=== PATIENT | female | born 1990 | race Caucasian/White ===

== ENCOUNTER → 2017-07-31 | Outpatient (CLI) | payer SELFPAY ==
[~2017-07-31] MED LIST: 6MP PO; ADAL40KI INJ; ALBU1AER9 INH; BCPILLS PO; EXEDRIN PO; FERR325T51 PO
[2017-07-31 13:26] LABS: BASO % 0.2 %; BASO ABS # 0.02 K/uL (0-0.2); COMPLETE YES; EOS % 1.6 %; HEMATOCRIT 39.8 % (37-47); IG% 0.2 %; LYMPH % 29.6 %; LYMPH ABS # 2.78 K/uL (1.2-3.4); MEAN CELL VOLUME 83.1 fL (80-100); MEAN CORPUSCULAR HEMOGLOBIN 27.8 pg (25-34); MEAN CORPUSCULAR HGB CONC 33.4 g/dl (32-36); MEAN PLATELET VOLUME 11.2 fL (7.4-10.4); MONO % 7.2 %; NEUT % 61.2 %; PLATELET COUNT 315 K/uL (130-400); RED BLOOD COUNT 4.79 M/uL (4.2-5.4)
[2017-07-31 14:00] LABS: ALT/SGPT 19 U/L (12-78); AST/SGOT 12 U/L (15-37); BLOOD UREA NITROGEN 7 mg/dl (7-18); BUN/CREATININE RATIO 9.7 (10-20); CALCIUM 8.8 mg/dl (8.5-10.1); CARBON DIOXIDE 21 mmol/L (21-32); CHLORIDE 116 mmol/L (98-107); GLUCOSE 69 mg/dl (70-99); POTASSIUM 3.4 mmol/L (3.5-5.1); SODIUM 143 mmol/L (136-145)
[2017-07-31 14:03] LABS: ALKALINE PHOSPHATASE 72 U/L (45-117); C-REACTIVE PROTEIN 0.96 mg/dl (0-0.29)
== END | disposition home or self-care (01) ==
LOC: C.LAB1850 12:31
PROVIDERS: ATTEND Internal Medicine
DX: K50.90 Crohn's disease, unspecified, without complications (principal)

== ENCOUNTER 2019-12-22 13:23 | Inpatient (IN) ==
[2019-12-22] MEDS ORDERED: ONDANSETRON INJ 2 MG/ML 2 ML VIAL IV STA ×2 (13:42→14:19)
[2019-12-22] MEDS ORDERED: MoRPHine SULFATE 4 MG/ML 1 ML CARP\\VIAL IV STA (13:42)
--- NOTE | 2019-12-22 13:45 | Emergency Department Note ---
History of Present Illness General Chief complaint: Vomiting Stated complaint: throwing up,crohns flares ups Time Seen by Provider: 12/22/19 13:35 History of Present Illness Maximum Pain Intensity: 10 This is a 29-year-old female that presents to the emergency department via private vehicle with complaints of "throwing up, Crohn's flare". The patient notes that she has a history of Crohn's disease and has had this for about 7 years. She states that she was feeling well and this morning on her way to receive her Entyvio injection she notes that she began with abdominal pain and vomiting. She points to the epigastric region as a location of pain. She notes that she has had similar flares in the past. She rates the pain is a 10/10. She notes persistent vomiting of bilious material. She spoke to her GI specialist who referred her here for further evaluation and management. Home Medications Home Medications Medication Instructions Recorded Confirmed Type acetaminophen 500 mg tablet 1,000 mg PO Q8H tab 09/14/19 12/22/19 History albuterol sulfate 2 puff INHALATION Q6H PRN 09/16/19 12/22/19 History vedolizumab 300 mg intravenous See Rx Instructions IV .COMPLEX 11/25/19 12/22/19 History solution famotidine 20 mg tablet 20 mg PO BID PRN 12/22/19 12/22/19 History Allergies Allergy/AdvReac Type Severity Reaction Status Date / Time promethazine Allergy Intermediate SHORTNESS Verified 12/22/19 13:53 OF BREATH bee venom protein (honey bee) Allergy Mild Rash Verified 12/22/19 13:53 Past Med/Surg History Medical History Crohns disease Dyspnea on exertion inhaler prn Fistula Surgical History History of section x2 History of cholecystectomy History of major abdominal surgery 2008---infection after , wound dehisced---had to have sx to clean site/had wound vac History of wisdom tooth extraction Family History Grandfather (Paternal) Family history of diabetes mellitus Grandmother (Paternal) Family history of diabetes mellitus Aunt Family history of esophageal cancer Other Crohn's disease No family history of adverse response to anesthesia Social History Preferred Language: Kyrgyz Communication Ability: Effective 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 Beliefs That Will Affect Care: None marital status: Current Living Situation: Spouse and Family Current Living Situation Comment: Lives with and kids current occupational status: employed 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 Feels Safe at Home: Yes Safety Concerns: Feels Safe At This Time Smoking Status: Current every day smoker Tobacco Type: cigarettes ; Cigarettes Per Day: 1/2 ppd ; Second Hand Exposure: Yes ( smokes/parents smoked) ; Hx Alcohol Use: Yes Alcohol type: hard liquor Hx Substance Use: No Childhood Exposure to Second-Hand Smoke: Yes caffeine: Yes Seatbelt Use: never Review of Systems A total of 10 systems reviewed and were otherwise negative Physical Exam Vital Signs Vital Signs - 24 hr 12/22/19 13:27 12/22/19 15:29 Temperature 36.4 C L Temperature Source Oral Pulse Rate 99 H Pulse Rate [Apical] 82 Respiratory Rate 20 18 Blood Pressure 123/89 Blood Pressure Mean 100 Pulse Oximetry 100 98 Oxygen Delivery Method Room Air Sepsis Recent Fever Within 48 Hours No Sepsis New/Unexplained Change in Mental Status No Sepsis Action Taken by Nursing No Action Required VITAL SIGNS - Vital signs and nursing notes were reviewed. Stable and afebrile. GENERAL -29-year-old female appearing her stated age who is in no acute distress but appears to be in pain and is holding the epigastric region. She is actively vomiting at the bedside into an emesis bag. This is a bilious color and there is no bright red blood. Communicates well with provider and answers questions appropriately. SKIN - Without rashes. No meningeal or petechial rash. HEAD - NC/AT. EYES - PERRL with EOMI bilaterally. Sclera anicteric. EARS - No deformities of external structures noted on gross examination bilater ally. NOSE - Midline and without cyanosis. No epistaxis or purulent drainage noted. MOUTH/OROPHARYNX - Without perioral cyanosis. NECK - Neck with FROM. Supple to palpation. No lymphadenopathy noted. No nuchal rigidity. LUNGS - Chest wall symmetric without accessory muscle use, intercostals retra ctions, or central cyanosis. Normal vesicular breath sounds CTA B/L. No wheezes, rales, or rhonchi appreciated. CARDIAC - RRR with S1/S2. No murmur, rubs, or gallops appreciated. ABDOMEN - Abdominal contour normal without pulsations or visible masses. BS normoactive all four quadrants. Epigastric region TTP. Abdomen is soft and nonrigid. No palpable masses, hepatosplenomegaly, or ascites noted. EXTREMITIES - No clubbing or peripheral cyanosis. No pretibial edema present. +5/5 strength noted in UE/LE bilaterally. NEUROLOGIC - Cranial nerves II through XII grossly intact. Sensory intact to li ght touch throughout. PSYCH - A&O, and cooperates fully with examiner. Pt is very pleasant and inte racts well with examiner. Course Administered Medications Nystatin 30 ml/ Dexamethasone 3.75 mg/ Diphenhydramine HCl 300 mg/ Sucrose 45 ml/Microcrystalline Cellulose 45 ml/ BARCODE IDENTIFIER 1 ea 0 ml PO Q2H PRN PRN Reason: Sore Throat Stop: 01/21/20 20:16 Last Admin: 12/22/19 20:49 Dose: 5 ml Documented by: [id number] Enoxaparin Sodium (Lovenox) 40 mg SQ Q24H THAIS Stop: 01/21/20 18:59 Last Admin: 12/22/19 20:48 Dose: Not Given Documented by: [id number] Sodium Chloride (Nss 1000ml) 1,000 mls @ 100 mls/hr IV .Q10H THAIS Stop: 01/21/20 17:59 Last Infusion: 12/23/19 06:10 Dose: 100 mls/hr Documented by: [id number] Admin: 12/23/19 04:04 Dose: 100 mls/hr Documented by: [id number] Infusion: 12/23/19 04:04 Dose: 100 mls/hr Documented by: [id number] Admin: 12/22/19 18:12 Dose: 100 mls/hr Documented by: [id number] Methylprednisolone 80 mg/ (Syringe) 1.28 mls @ 1.5 mls/min IV Q12@0600,1800 THAIS Stop: 01/21/20 17:59 Last Admin: 12/23/19 05:52 Dose: 1.5 mls/min Documented by: [id number] Admin: 12/22/19 18:30 Dose: 1.5 mls/min Documented by: [id number] Famotidine 20 mg/ Syringe 5 mls @ 2.5 mls/min IV Q12@0600,1800 THAIS Stop: 01/21/20 17:59 Last Admin: 12/23/19 05:52 Dose: 2.5 mls/min Documented by: [id number] Admin: 12/22/19 18:30 Dose: 2.5 mls/min Documented by: [id number] Lorazepam (Ativan) 0.5 mg in 1 mls @ 1 mls/min IV Q4H PRN PRN Reason: Anxiety Stop: 01/21/20 20:16 Last Admin: 12/22/19 20:48 Dose: 1 mls/min Documented by: [id number] Discontinued Medications Diphenhydramine HCl (Benadryl) 25 mg IV NOW STA Stop: 12/22/19 15:42 Last Admin: 12/22/19 15:48 Dose: 25 mg Documented by: [id number] Hydromorphone HCl (Dilaudid) 0.5 mg IV NOW STA Stop: 12/22/19 14:20 Last Admin: 12/22/19 14:45 Dose: 0.5 mg Documented by: [id number] Hydromorphone HCl (Dilaudid) 0.5 mg IV NOW STA Stop: 12/22/19 17:00 Last Admin: 12/22/19 17:02 Dose: 0.5 mg Documented by: [id number] Hydromorphone HCl (Dilaudid) 0.5 mg IV NOW STA Stop: 12/22/19 19:00 Last Admin: 12/22/19 19:04 Dose: 0.5 mg Documented by: [id number] Sodium Chloride (Nss 1000ml) 1,000 mls @ 999 mls/hr IV .Q1H1M THAIS Stop: 12/22/19 15:00 Last Infusion: 12/22/19 15:31 Dose: 0 mls/hr Documented by: [id number] Admin: 12/22/19 14:04 Dose: 999 mls/hr Documented by: [id number] Sodium Chloride (Nss 1000ml) 1,000 mls @ 999 mls/hr IV .Q1H1M THAIS Stop: 12/22/19 16:15 Last Infusion: 12/22/19 16:59 Dose: 0 mls/hr Documented by: [id number] Admin: 12/22/19 15:30 Dose: 999 mls/hr Documented by: [id number] Metoclopramide HCl (Reglan) 5 mg IV NOW STA Stop: 12/22/19 15:42 Last Admin: 12/22/19 15:48 Dose: 5 mg Documented by: [id number] Morphine Sulfate (Morphine Sulfate) 4 mg IV NOW STA Stop: 12/22/19 13:43 Last Admin: 12/22/19 14:03 Dose: 4 mg Documented by: [id number] Ondansetron HCl (Zofran) 4 mg IV NOW STA Stop: 12/22/19 13:43 Last Admin: 12/22/19 14:03 Dose: 4 mg Documented by: [id number] Ondansetron HCl (Zofran) 4 mg IV NOW STA Stop: 12/22/19 14:20 Last Admin: 12/22/19 14:42 Dose: 4 mg Documented by: [id number] Medical Decision Making Laboratory Data Result diagrams: 12/23/19 04:38 12/23/19 04:38 Lab Results 12/22/19 12/22/19 12/22/19 Range/Units 13:49 13:49 13:49 WBC 13.28 H (4.8-10.8) K/uL RBC 4.97 (4.2-5.4) M/uL Hgb 14.2 (12.0-16.0) g/dL Hct 42.9 (37-47) % MCV 86.3 (80-100) fL MCH 28.6 (25-34) pg MCHC 33.1 (32-36) g/dL RDW Std Deviation 40.7 (36.4-46.3) fL RDW Coeff of Lyla 12.8 (11.5-14.5) % Plt Count 323 (130-400) K/uL MPV 9.9 (7.4-10.4) fL Immature Gran % (Auto) 0.2 % Neut % (Auto) 74.1 % Lymph % (Auto) 18.1 % Glascock % (Auto) 6.4 % Eos % (Auto) 1.0 % Baso % (Auto) 0.2 % Immature Gran # (Auto) 0.02 (0.00-0.02) K/uL Neut # (Auto) 9.85 H (1.4-6.5) K/uL Lymph # (Auto) 2.40 (1.2-3.4) K/uL Glascock # (Auto) 0.85 H (0.11-0.59) K/uL Eos # (Auto) 0.13 (0-0.5) K/uL Baso # (Auto) 0.03 (0-0.2) K/uL Sodium 139 (136-145) mmol/L Potassium 3.6 (3.5-5.1) mmol/L Chloride 106 (98-107) mmol/L Carbon Dioxide 27 (21-32) mmol/L Anion Gap 6.0 (3-11) BUN 8 (7-18) mg/dl Creatinine 0.73 (0.6-1.2) mg/dl Est Cr Clr Drug Dosing 104.9 ml/min Est GFR ( Amer) 127.2 Est GFR (Non-Af Amer) 109.7 BUN/Creatinine Ratio 11.3 (10-20) Glucose 115 H (70-99) mg/dl Calcium 10.2 H (8.5-10.1) mg/dl Magnesium 2.0 (1.8-2.4) mg/dl Total Bilirubin 0.5 (0.2-1) mg/dl AST 15 (15-37) U/L ALT 21 (12-78) U/L Alkaline Phosphatase 67 (45-117) U/L C-Reactive Protein 2.08 H (0-0.29) mg/dl Total Protein 8.7 H (6.4-8.2) gm/dl Albumin 4.2 (3.4-5.0) gm/dl Globulin 4.5 H (2.5-4.0) gm/dl Albumin/Globulin Ratio 0.9 (0.9-2) Lipase 102 (73-393) U/L Urine Color Urine Appearance (Clear) Urine pH (4.5-7.5) Ur Specific [place] (1.000-1.030) Urine Protein (Negative) Urine Glucose (UA) (Negative) Urine Ketones (Negative) Urine Blood (Negative) Urine Nitrite (Negative) Urine Bilirubin (Negative) Urine Urobilinogen (Negative) Ur Leukocyte Esterase (Negative) Urine WBC (Auto) (0-5) /hpf Urine RBC (Auto) (0-4) /hpf U Hyaline Cast (Auto) (0-5) /lpf U Epithel Cells (Auto) (0-5) /lpf Urine Bacteria (Auto) (Negative) POC Ur Test (NEG) 12/22/19 12/22/19 Range/Units 16:00 16:00 WBC (4.8-10.8) K/uL RBC (4.2-5.4) M/uL Hgb (12.0-16.0) g/dL Hct (37-47) % MCV (80-100) fL MCH (25-34) pg MCHC (32-36) g/dL RDW Std Deviation (36.4-46.3) fL RDW Coeff of Lyla (11.5-14.5) % Plt Count (130-400) K/uL MPV (7.4-10.4) fL Immature Gran % (Auto) % Neut % (Auto) % Lymph % (Auto) % Glascock % (Auto) % Eos % (Auto) % Baso % (Auto) % Immature Gran # (Auto) (0.00-0.02) K/uL Neut # (Auto) (1.4-6.5) K/uL Lymph # (Auto) (1.2-3.4) K/uL Glascock # (Auto) (0.11-0.59) K/uL Eos # (Auto) (0-0.5) K/uL Baso # (Auto) (0-0.2) K/uL Sodium (136-145) mmol/L Potassium (3.5-5.1) mmol/L Chloride (98-107) mmol/L Carbon Dioxide (21-32) mmol/L Anion Gap (3-11) BUN (7-18) mg/dl Creatinine (0.6-1.2) mg/dl Est Cr Clr Drug Dosing ml/min Est GFR ( Amer) Est GFR (Non-Af Amer) BUN/Creatinine Ratio (10-20) Glucose (70-99) mg/dl Calcium (8.5-10.1) mg/dl Magnesium (1.8-2.4) mg/dl Total Bilirubin (0.2-1) mg/dl AST (15-37) U/L ALT (12-78) U/L Alkaline Phosphatase (45-117) U/L C-Reactive Protein (0-0.29) mg/dl Total Protein (6.4-8.2) gm/dl Albumin (3.4-5.0) gm/dl Globulin (2.5-4.0) gm/dl Albumin/Globulin Ratio (0.9-2) Lipase (73-393) U/L Urine Color Dark Yellow Urine Appearance Clear (Clear) Urine pH 5.0 (4.5-7.5) Ur Specific [place] 1.027 (1.000-1.030) Urine Protein 1+ H (Negative) Urine Glucose (UA) Negative (Negative) Urine Ketones 1+ H (Negative) Urine Blood Negative (Negative) Urine Nitrite Negative (Negative) Urine Bilirubin Negative (Negative) Urine Urobilinogen Negative (Negative) Ur Leukocyte Esterase Negative (Negative) Urine WBC (Auto) 1-5 (0-5) /hpf Urine RBC (Auto) 5-10 H (0-4) /hpf U Hyaline Cast (Auto) 1-5 (0-5) /lpf U Epithel Cells (Auto) >30 H (0-5) /lpf Urine Bacteria (Auto) Negative (Negative) POC Ur Test NEG (NEG) MDM Narrative Patient was seen and evaluated as above in room C1. Review was performed of nursing notes and vital signs. After obtaining a thorough history and physical examination the above work up was performed. She presents to us today with vomiting. She has a history of Crohn's. This is similar to previous exacerbations. She was on her way to receiving her Entyvio injection/infusion today. On exam she is actively vomiting and is holding the epigastric region. IV access was established. She was given IV fluids, morphine and Zofran. She was reevaluated with persistence of symptoms and was given Dilaudid and more Zofran. Labs reveal mild leukocytosis at 13.28 without anemia. Urinalysis reveals no infection. UPT is negative. No electrolyte, kidney or liver abnormality. I did discuss the case with her GI specialist, Dr. Shane. At this time we will refrain from a CT scan as the patient cannot drink oral contrast and she has a soft and nonrigid abdominal exam. CRP was added. This is 2.08. The patient's nausea and pain persisted despite multiple rounds of antiemetics a nd pain meds. I elected to obtain a plain film which revealed a small bowel obstruction. I then updated Dr. Shane on the finding and at this time we discussed inpatient management, surgical consult once admitted, as well as 40 mg of Solu-Medrol twice daily. NG tube was also placed. I discussed the case with the hospitalist. Please refer to further documentation regarding her stay. Case was discussed with the attending physician. In the evaluation and treatment of this patient, the following differential diagnoses were considered: ASC, CT, Pneumonia, GERD, Cholecystitis, Ascending Cholangitis, Cholydocholithiasis, Bowel Obstruction, PE, Amongst Others. Impression & Plan Small bowel obstruction, Intractable nausea and vomiting Discharge Plan Visit Data *Final* Discharge Date/Time: 12/22/19 17:30 Chief Complaint: Vomiting Stated Complaint: throwing up,crohns flares ups ED Provider: [facility] Midlevel Provider: Aleksandr Chen Discharge Problem: Small bowel obstruction, Intractable nausea and vomiting Patient Disposition: Admitted As Inpatient Condition: Good Discharge Instructions Interventions: ED Discharge Assessment Last Done: 12/22/19 17:30
[2019-12-22 13:57] LABS: Basophils # (auto) 0.03 K/uL (0-0.2); Basophils % (auto) 0.2 %; Eosinophils # (auto) 0.13 K/uL (0-0.5); Hematocrit (blood only) 42.9 % (37-47); Hemoglobin 14.2 g/dL (12.0-16.0); Immature Granulocytes # (auto) 0.02 K/uL (0.00-0.02); Immature Granulocytes % (auto) 0.2 %; Lymphocytes % (auto) 18.1 %; Mean Corpuscular Hemoglobin 28.6 pg (25-34); Mean Corpuscular Hgb Conc 33.1 g/dL (32-36); Mean Corpuscular Volume 86.3 fL (80-100); Mean Platelet Volume 9.9 fL (7.4-10.4); Monocytes # (auto) 0.85 K/uL (0.11-0.59); Monocytes % (auto) 6.4 %; Neutrophils # (auto) 9.85 K/uL (1.4-6.5); Neutrophils % (auto) 74.1 %; Platelet Count 323 K/uL (130-400); RDW Coefficient of Variation 12.8 % (11.5-14.5); RDW Standard Deviation 40.7 fL (36.4-46.3); Red Blood Count 4.97 M/uL (4.2-5.4); White Blood Count 13.28 K/uL (4.8-10.8)
[2019-12-22] MEDS ORDERED: SODIUM CHLORIDE 0.9% 1000ML 1,000 ML IV SCH ×2 (14:00→15:15)
[2019-12-22 14:15] LABS: Albumin Level 4.2 gm/dl (3.4-5.0); BUN Creatinine Ratio 11.3 (10-20); Calcium 10.2 mg/dl (8.5-10.1); Creatinine Clr Calc Pharmacy 104.9 ml/min; Est GFR (African American) 127.2; Est GFR (Non-African American) 109.7; Potassium 3.6 mmol/L (3.5-5.1)
[2019-12-22 14:18] LABS: Albumin Globulin Ratio 0.9 (0.9-2); Bilirubin,Total 0.5 mg/dl (0.2-1); Globulin 4.5 gm/dl (2.5-4.0); Total Protein 8.7 gm/dl (6.4-8.2)
[2019-12-22] MEDS ORDERED: HYDROmorphone INJ 0.5 MG/0.5 ML SYR IV STA ×3 (14:19→18:59)
[2019-12-22] MEDS ORDERED: METOCLOPRAMIDE HCL INJ 5 MG/ML 2 ML VIAL IV STA (15:41)
[2019-12-22] MEDS ORDERED: DiphenhydrAMINE HCL 50 MG/ML VIAL IV STA (15:41)
[2019-12-22 16:13] LABS: Appearance Urine Clear (Clear); Bacteria Urine Automated Negative (Negative); Bilirubin Urine Negative (Negative); Blood Urine Negative (Negative); Color Urine Dark Yellow; Epithelial Cell Urine Auto >30 /lpf (0-5); Glucose Urine UA Negative (Negative); Ketones Urine 1+ (Negative); Leukocyte Esterase Urine Negative (Negative); Nitrite Urine Negative (Negative); Protein Urine 1+ (Negative); Specific Gravity Urine 1.027 (1.000-1.030); Urobilinogen Urine Negative (Negative)
--- NOTE | 2019-12-22 16:23 | XRay Report ---
XR abdomen 2V w PA chest HISTORY: 29 years-old Female Epigastric abd pain acute epigastric abdominal pain COMPARISON: CT abdomen and pelvis 03/09/2015 TECHNIQUE: PA view of the chest with erect and supine views of the abdomen FINDINGS: Cardiomediastinal and hilar silhouettes are within normal limits. Eventration of the right hemidiaphr agm. No pneumothorax, pleural effusion, airspace consolidation or overt pulmonary edema. Bones of the chest appear grossly intact. Cholecystectomy. Multiple dilated loops of small bowel with air-fluid l evels are noted measuring up to 5.0 cm. The large bowel predominantly appears to be decompressed. No pneumatosis or pneumoperitoneum. No definite urolith. No acute fracture. IMPRESSION: 1. Small bowel obstruction without pneumatosis or pneumoperitoneum identified. 2. No acute processes of the chest. 3. Cholecystectomy. ACT 112: Negative or not required by law. The above report was generated using voice recognition software. It may contain grammatical, syntax o r spelling errors. Electronically signed by: Alexander Reyes M.D. 12/22/2019 4:22 PM
--- NOTE | 2019-12-22 16:47 | History & Physical Report ---
Date of Service December 22, 2019 Assessment & Plan (1) Small bowel obstruction: Plan to admit to a general medical Bed. Strict n.p.o. with NG tube suction once tube was placed. ER [facility] has been in contact with Dr. Shane, the patient's GI physician. He is recommending Solu-Medrol 40 mg IV every 12, will start this as well. Low-dose narcotics for abdominal pain as needed. Consideration of CT scan if symptoms worsen or new symptoms develop. We will also ask general surgery to evaluate. (2) Crohn's ileitis: Will await GI recommendations. IV Solu-Medrol as noted above. History of Present Illness Primary Care Provider: Kirk Phelps This is a 29-year-old female with past medical history of Crohn's disease that presents today complaining of significant abdominal pain. Patient is limited strength patient seems to be in some distress during my conversation with her. Patient has been receiving Entyvio from her GI physician. She was due for dose today. She was doing well yesterday but this morning woke up with significant abdominal pain. This is mostly periumbilical and midline. This was accompanied by intractable vomiting. Although I did not see vomitus, she had multiple episodes in the emergency room described as bilious. Her last bowel movement was was approximately 930 this morning it was a small volume. She denies any pr odromal symptoms and was feeling fine yesterday. She has not had any POs. she called her GI physician and was told to present to the emergency room for further evaluation. At time my evaluation, the patient was alert but seemed very nauseous and did not provide much more history. NG tube was being prepared for insertion secondary to the patient's abnormal abdominal x-ray. Allergies Allergy/AdvReac Type Severity Reaction Status Date / Time promethazine Allergy Intermediate SHORTNESS Verified 12/22/19 13:53 OF BREATH bee venom protein (honey bee) Allergy Mild Rash Verified 12/22/19 13:53 Home Medications Home Medications Medication Instructions Recorded Confirmed Type acetaminophen 500 mg tablet 1,000 mg PO Q8H tab 09/14/19 12/22/19 History albuterol sulfate 2 puff INHALATION Q6H PRN 09/16/19 12/22/19 History vedolizumab 300 mg intravenous See Rx Instructions IV .COMPLEX 11/25/19 12/22/19 History solution famotidine 20 mg tablet 20 mg PO BID PRN 12/22/19 12/22/19 History Past Med/Surg History Medical History Crohns disease Dyspnea on exertion inhaler prn Fistula Surgical History History of section x2 History of cholecystectomy History of major abdominal surgery 2008---infection after , wound dehisced---had to have sx to clean site/had wound vac History of wisdom tooth extraction Family History Grandfather (Paternal) Family history of diabetes mellitus Grandmother (Paternal) Family history of diabetes mellitus Aunt Family history of esophageal cancer Other Crohn's disease No family history of adverse response to anesthesia Social History Preferred Language: Kiswahili Communication Ability: Effective Gambling Dealer Required: No Beliefs That Will Affect Care: None marital status: Current Living Situation: Spouse and Family Current Living Situation Comment: Lives with and kids current occupational status: employed 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 Feels Safe at Home: Yes Smoking Status: Current every day smoker Tobacco Type: cigarettes ; Cigarettes Per Day: 10 a day ; Second Hand Exposure: Yes ( smokes/parents smoked) ; Hx Alcohol Use: Yes Alcohol type: hard liquor Hx Substance Use: No Childhood Exposure to Second-Hand Smoke: Yes caffeine: Yes Seatbelt Use: never Review of Systems Constitutional: no fever, no chills, no weakness, no weight loss and no weight gain Eyes: as per Subjective / HPI Respiratory: no cough, no chest congestion, no dyspnea and no dyspnea on exertion Cardiovascular: no chest pain, no orthopnea, no palpitations, no lightheadedness and no edema Gastrointestinal: + abdominal pain, + nausea and + vomiting; no coffee ground emesis, no constipation and no diarrhea/loose stools Genitourinary: no dysuria, no difficulty urinating, no urinary frequency, no urinary hesitancy, no urinary urgency and no flank pain Musculoskeletal: no back pain, no neck pain, no joint pain, no stiffness and no myalgia Integumentary: no rash Neurologic: no gait abnormality, no unsteadiness, no falls and no generalized weakness Physical Exam Constitutional: average body habitus and + in distress (Due to nausea); not diaphoretic Nonjaundiced and anicteric Neck: trachea midline, no thyromegaly Respiratory: normal respiratory effort Auscultation: lungs clear to auscultation bilaterally; no crackles, no rales, no rhonchi and no wheezes Cardiovascular: Rate/Rhythm: regular rate and regular rhythm Heart Sounds: normal S1 and normal S2 Gastrointestinal (Abdomen): Inspection/Auscultation: abdomen normal to inspection Percussion/Palpation: + abdomen tender and abdomen soft; no guarding, abdomen not rigid and no hepatosplenomegaly Skin: no rashes, warm and dry Results & Data Vital Signs (Past 12 Hours) Vital Signs Temp Pulse Pulse Resp BP Pulse Ox 12/22/19 15:29 82 18 98 12/22/19 13:27 36.4 C L 99 H 20 123/89 100 Laboratory Results Hemoglobin 13.2, hemoglobin of 14.2, hematocrit of 42.9, platelets of 323. Sodium 139, potassium 3.6, chloride 106, CO2 27, BUN 8 with a creatinine 0.73. Glucose of 115. Calcium of 10.2. CRP is 2.08. UA shows 1+ protein, 1+ ketones over 30 epithelial cells. Diagnostic Findings XR abdomen 2V w PA chest HISTORY: 29 years-old Female Epigastric abd pain acute epigastric abdominal pain COMPARISON: CT abdomen and pelvis 03/09/2015 TECHNIQUE: PA view of the chest with erect and supine views of the abdomen FINDINGS: Cardiomediastinal and hilar silhouettes are within normal limits. Eventration of the right hemidiaphragm. No pneumothorax, pleural effusion, airspace consolidation or overt pulmonary edema. Bones of the chest appear grossly intact. Cholecystectomy. Multiple dilated loops of small bowel with air-fluid levels are noted measuring up to 5.0 cm. The large bowel predominantly appears to be decompressed. No pneumatosis or pneumoperitoneum. No definite urolith. No acute fracture. IMPRESSION: 1. Small bowel obstruction without pneumatosis or pneumoperitoneum identified. 2. No acute processes of the chest. 3. Cholecystectomy. 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
--- NOTE | 2019-12-22 17:43 | XRay Report ---
KUB HISTORY: Status post placement of enteric tube confirm NG placement COMPARISON: Acute abdominal series radiographs of same day FINDINGS: Status post placement of an enteric tube, coiled within the stomach, distal tip projected i nferiorly within the region of the mid gastric body. Cholecystectomy. Dilated loops of bowel redemons trated within the central abdomen. No urolith or acute fracture. IMPRESSION: Enteric tube coiled within the mid stomach. ACT 112: Negative or not required by law. The above report was generated using voice recognition software. It may contain grammatical, syntax o r spelling errors. Electronically signed by: Alexander Reyes M.D. 12/22/2019 5:41 PM
[2019-12-22] MEDS ORDERED: ONDANSETRON INJ 2 MG/ML 2 ML VIAL IV PRN (18:00)
[2019-12-22] MEDS ORDERED: ALBUTEROL HFA 8 GM INHALER INH PRN (18:00)
[2019-12-22] MEDS ORDERED: FAMOTIDINE 20MG/5ML IV PUSH IV SCH (18:00)
[2019-12-22] MEDS ORDERED: methylPREDNISolone 125 MG/2 ML VIAL IV SCH (18:00)
[2019-12-22] MEDS ORDERED: HYDROmorphone INJ 0.5 MG/0.5 ML SYR IV PRN (18:00)
[2019-12-22] MEDS: SODIUM CHLORIDE 0.9% 1000ML 1,000 ML IV SCH (18:12)
[2019-12-22] MEDS: methylPREDNISolone 80 MG in SYRINGE 0 ML IV SCH (18:30)
[2019-12-22] MEDS: FAMOTIDINE 20 MG in SYRINGE 3 ML IV SCH (18:30)
--- NOTE | 2019-12-22 18:34 | Surgery Progress Note ---
Date of Service December 22, 2019 Results & Data Vital Signs (Past 12 Hours) Vital Signs Temp Pulse Pulse Pulse Resp BP BP 12/22/19 18:03 36.9 C 77 18 130/79 12/22/19 17:04 84 18 126/88 12/22/19 15:29 82 18 12/22/19 13:27 36.4 C L 99 H 20 123/89 Pulse Ox 12/22/19 18:03 100 12/22/19 17:04 99 12/22/19 15:29 98 12/22/19 13:27 100
[2019-12-22] MEDS ORDERED: NYSTATIN 30 ML, DEXAMETHASONE CONC 3.75 MG, DiphenhydrAMINE Syrup 300 MG, ORA-SWEET SYR... PO PRN (20:17)
[2019-12-22] MEDS: ENOXAPARIN INJ 40 MG/0.4 ML SYR SQ SCH (20:48)
[2019-12-22] MEDS: LORazepam 0.5 MG/1 ML VIAL IV PRN (20:48)
[2019-12-23] MEDS: SODIUM CHLORIDE 0.9% 1000ML 1,000 ML IV SCH ×2 (04:04→13:23)
[2019-12-23 05:11] LABS: Hematocrit (blood only) 36.3 % (37-47); Hemoglobin 11.7 g/dL (12.0-16.0); Immature Granulocytes # (auto) 0.03 K/uL (0.00-0.02); Immature Granulocytes % (auto) 0.3 %; Lymphocytes # (auto) 1.14 K/uL (1.2-3.4); Lymphocytes % (auto) 11.5 %; Mean Corpuscular Hemoglobin 27.9 pg (25-34); Mean Corpuscular Hgb Conc 32.2 g/dL (32-36); Mean Corpuscular Volume 86.4 fL (80-100); Mean Platelet Volume 10.1 fL (7.4-10.4); Monocytes # (auto) 0.16 K/uL (0.11-0.59); Monocytes % (auto) 1.6 %; Neutrophils # (auto) 8.56 K/uL (1.4-6.5); Neutrophils % (auto) 86.6 %; Platelet Count 305 K/uL (130-400); RDW Coefficient of Variation 12.8 % (11.5-14.5); RDW Standard Deviation 40.7 fL (36.4-46.3); White Blood Count 9.89 K/uL (4.8-10.8)
[2019-12-23 05:52] LABS: BUN Creatinine Ratio 17.1 (10-20); Calcium 8.1 mg/dl (8.5-10.1); Creatinine Clr Calc Pharmacy 150.2 ml/min; Est GFR (African American) 148.5; Est GFR (Non-African American) 128.1; Magnesium 1.8 mg/dl (1.8-2.4)
[2019-12-23] MEDS: methylPREDNISolone 80 MG in SYRINGE 0 ML IV SCH ×2 (05:52→18:36)
[2019-12-23] MEDS: FAMOTIDINE 20 MG in SYRINGE 3 ML IV SCH ×2 (05:52→18:36)
[2019-12-23] MEDS: LORazepam 0.5 MG/1 ML VIAL IV PRN (08:14)
--- NOTE | 2019-12-23 10:10 | Gastrointestinal Consultation ---
Date of Consultation December 23, 2019 Assessment & Plan (1) Crohn's ileitis: (2) Small bowel obstruction: (3) Intractable nausea and vomitin. NPO. 2. Continue NG to LIW suction. 3. Continue IV Solu-Medrol as prescribed. 4. Await surgical opinion. 5. Continue supportive care. Supervising Physician Co-Signing Physician Notes I personally evaluated the patient and agree with the findings as documented by REECE Davis Exam: abd: soft, nt, nd continue NG tube to low intermittent suction, continue steroids and supportive care. check daily ESR and CRP History of Present Illness Reason for Consultation: SBO Requesting Physician: Dr. Arshad Attending Physician: Bryan Arshad MD History of Present Illness Patient is a 29 year-old female with a history of Crohn's ileitis last seen in our office in October of 2019 by Radhika Chairez PA-C. She has been noted to have compliance issues in the past with keeping scheduled office visits and treating her Crohn's disease. She had been reportedly off therapy for approximately 2 years prior to just resuming treatment. She had been on Budesonide and started Entyvio. She has received a single infusion and was due for her second yesterday but had contacted our office reporting severe "12 out of 10" abdominal pain and nausea with vomiting. She has been admitted to the hospital with imaging suggestive a of a small bowel obstruction. Since insertion of the NG tube, she has been noted to have some bilious and feculent output. Has been kept NPO and initiated on IV corticosteroids. The nausea has resolved as well as her abdominal pain. She denies any f/c, arthralgias, eye pain/redness, skin rashes or fatigue. Laboratory testing was reviewed. No leukocytosis,. Mild anemia with H&H of 11.7/36.3%. CRP elevated at 2.08. General surgery has been consulted and evaluation is pending. Allergies Allergy/AdvReac Type Severity Reaction Status Date / Time promethazine Allergy Intermediate SHORTNESS Verified 12/22/19 13:53 OF BREATH bee venom protein (honey bee) Allergy Mild Rash Verified 12/22/19 13:53 Home Medications Home Medications Medication Instructions Recorded Confirmed Type acetaminophen 500 mg tablet 1,000 mg PO Q8H tab 09/14/19 12/22/19 History albuterol sulfate 2 puff INHALATION Q6H PRN 09/16/19 12/22/19 History vedolizumab 300 mg intravenous See Rx Instructions IV .COMPLEX 11/25/19 12/22/19 History solution famotidine 20 mg tablet 20 mg PO BID PRN 12/22/19 12/22/19 History Patient History Medical History Crohns disease Dyspnea on exertion inhaler prn Fistula Surgical History History of section x2 History of cholecystectomy History of major abdominal surgery 2008---infection after , wound dehisced---had to have sx to clean site/had wound vac History of wisdom tooth extraction Family History Grandfather (Paternal) Family history of diabetes mellitus Grandmother (Paternal) Family history of diabetes mellitus Aunt Family history of esophageal cancer Other Crohn's disease No family history of adverse response to anesthesia Social History Preferred Language: Swedish Communication Ability: Effective Motor Vehicle Or Caravan Salesperson Required: No Beliefs That Will Affect Care: None marital status: Current Living Situation: Spouse and Family Current Living Situation Comment: Lives with and kids current occupational status: employed 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 Feels Safe at Home: Yes Safety Concerns: Feels Safe At This Time Smoking Status: Current every day smoker Tobacco Type: cigarettes ; Cigarettes Per Day: 1/2 ppd ; Second Hand Exposure: Yes ( smokes/parents smoked) ; Hx Alcohol Use: Yes Alcohol type: hard liquor Hx Substance Use: No Childhood Exposure to Second-Hand Smoke: Yes caffeine: Yes Seatbelt Use: never Review of Systems Review of Systems: All systems reviewed & are unremarkable except as noted in HPI & below Physical Exam Constitutional: WD/WN, vitals as above Eyes: EOM intact bilaterally Neck: normal appearance Respiratory: normal respiratory effort, lungs clear to auscultation Cardiovascular: Rate/Rhythm: regular rate and regular rhythm Heart Sounds: no gallop and no murmur Gastrointestinal (Abdomen): Inspection/Auscultation: + hypoactive bowel sounds Percussion/Palpation: abdomen soft; abdomen nontender Musculoskeletal: Extremities: no cyanosis no lower extremity edema Skin: no rashes, warm and dry Neurologic: moves all extremities Psychiatric: A+Ox3, euthymic affect Results & Data ([facility]) Vital Signs (Past 12 Hours) Vital Signs Temp Pulse Resp BP Pulse Ox 12/23/19 07:06 37.2 C 58 L 16 119/79 97 12/22/19 23:08 37.1 C 65 14 113/71 97 Laboratory Results Abnormal lab results 12/22/19 12/22/19 12/22/19 Range/Units 13:49 13:49 13:49 WBC 13.28 H (4.8-10.8) K/uL Hgb (12.0-16.0) g/dL Hct (37-47) % Immature Gran # (Auto) (0.00-0.02) K/uL Neut # (Auto) 9.85 H (1.4-6.5) K/uL Lymph # (Auto) (1.2-3.4) K/uL [place] # (Auto) 0.85 H (0.11-0.59) K/uL Chloride (98-107) mmol/L Creatinine (0.6-1.2) mg/dl Glucose 115 H (70-99) mg/dl Calcium 10.2 H (8.5-10.1) mg/dl C-Reactive Protein 2.08 H (0-0.29) mg/dl Total Protein 8.7 H (6.4-8.2) gm/dl Globulin 4.5 H (2.5-4.0) gm/dl Urine Protein (Negative) Urine Ketones (Negative) Urine RBC (Auto) (0-4) /hpf U Epithel Cells (Auto) (0-5) /lpf 12/22/19 12/23/19 12/23/19 Range/Units 16:00 04:38 04:38 WBC (4.8-10.8) K/uL Hgb 11.7 L (12.0-16.0) g/dL Hct 36.3 L (37-47) % Immature Gran # (Auto) 0.03 H (0.00-0.02) K/uL Neut # (Auto) 8.56 H (1.4-6.5) K/uL Lymph # (Auto) 1.14 L (1.2-3.4) K/uL [place] # (Auto) (0.11-0.59) K/uL Chloride 112 H (98-107) mmol/L Creatinine 0.51 L (0.6-1.2) mg/dl Glucose 119 H (70-99) mg/dl Calcium 8.1 L D (8.5-10.1) mg/dl C-Reactive Protein (0-0.29) mg/dl Total Protein (6.4-8.2) gm/dl Globulin (2.5-4.0) gm/dl Urine Protein 1+ H (Negative) Urine Ketones 1+ H (Negative) Urine RBC (Auto) 5-10 H (0-4) /hpf U Epithel Cells (Auto) >30 H (0-5) /lpf PG Care Time/CCT Total # of Minutes Spent Total Time Spent with Patient: Total time spent is greater than 50% in coordination of care (as documented) at patient's floor/unit and/or counseling patient: Coding Level of Care Code 50291 Inpt Consult Level 4 Diagnoses Crohn's ileitis K50.013 Digestive disease complication type: with fistula Small bowel obstruction K56.609 Intractable nausea and vomiting R11.2 (1) Crohn's ileitis Digestive disease complication type: with fistula Qualified Code(s): K50.013 - Crohn's disease of small intestine with fistula
--- NOTE | 2019-12-23 10:30 | Surgery Consultation ---
Date of Consultation December 23, 2019 Assessment & Plan (1) Small bowel obstruction: 29 year-old with history of Crohn's disease with fistula complication last year who presented to emergency department yesterday with vomiting and abdominal pain that began yesterday morning. Abdominal xray showing dilated bowel consistent with SBO. Mild leukocytosis of 13K on presentation. NGT was inserted now with no abdominal pain or vomiting. Diarrhea since admission. On IV Steroids. Plan: No acute surgical intervention recommended at this time. Continue conservative management with IV fluids, NPO, NGT to LIS, IV Steroids, pain management as needed. Encourage ambulation if she continues to pass flatus and bowel movements could consider NGT removal GI following, continue Recs continue medical management If she were to need surgical intervention , would recommend transfer to [facility] since she follows with Colorectal surgeon Dr Calderón. (2) Intractable nausea and vomiting: Resolved since NGT placement plan as above (3) Crohn's ileitis: plan as above Dr. Cage has seen and examined pt, agrees with above. Supervising Physician Co-Signing Physician Notes I interviewed and examined this patient I agree with the above note. She has a history of Crohn's disease and history of surgery for fistula. She has had sy mptoms of obstruction similar to this in the past which have all resolved. I do not feel there is any need for immediate surgical intervention. There is no evidence of peritonitis. If surgery were necessary then transfer her colorectal surgeon in [place] would be most appropriate. History of Present Illness Reason for Consultation: SBO, Crohn's disease Requesting Physician: Davidson Bedoya MD Attending Physician: Bryan Arshad MD History of Present Illness Antonella is a 29 year-old female with history of Crohn's disease who presented to emergency room yesterday with complaint of persistent vomiting and abdominal pain that started yesterday morning. She was due for second infusion of Entyvio yesterday but these symptoms preceded her appointment and was advised to go to emergency room. States she had normal bowel movements and passing gas yesterday. Has had multiple similar episodes of Crohn's flare that usually resolves on its own at home with vomiting and clear liquids. She had a fistula secondary to her Crohn's which required packing. Follows with Dr. Calderón in [place]. She has been on budesonide in past as well as other steroids and biologic therapies. Diagnosed with Crohn's at age 20. Er work-up included labs which showed leukocytosis of 13K. Abdominal x-ray showing signs of small bowel obstruction. NGT was placed. Since admission, Antonella states she is feeling better. Abdominal pain and vomiting have resolved. Had diarrhea since admission. Allergies Allergy/AdvReac Type Severity Reaction Status Date / Time promethazine Allergy Intermediate SHORTNESS Verified 12/22/19 13:53 OF BREATH bee venom protein (honey bee) Allergy Mild Rash Verified 12/22/19 13:53 Home Medications Home Medications Medication Instructions Recorded Confirmed Type acetaminophen 500 mg tablet 1,000 mg PO Q8H tab 09/14/19 12/22/19 History albuterol sulfate 2 puff INHALATION Q6H PRN 09/16/19 12/22/19 History vedolizumab 300 mg intravenous See Rx Instructions IV .COMPLEX 11/25/19 12/22/19 History solution famotidine 20 mg tablet 20 mg PO BID PRN 12/22/19 12/22/19 History Patient History Medical History Crohns disease Dyspnea on exertion inhaler prn Fistula Surgical History History of section x2 History of cholecystectomy History of major abdominal surgery 2008---infection after , wound dehisced---had to have sx to clean site/had wound vac History of wisdom tooth extraction Family History Grandfather (Paternal) Family history of diabetes mellitus Grandmother (Paternal) Family history of diabetes mellitus Aunt Family history of esophageal cancer Other Crohn's disease No family history of adverse response to anesthesia Social History Preferred Language: Irish Communication Ability: Effective Railroad Auditor Required: No Beliefs That Will Affect Care: None marital status: Current Living Situation: Spouse and Family Current Living Situation Comment: Lives with and kids current occupational status: employed 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 Feels Safe at Home: Yes Safety Concerns: Feels Safe At This Time Smoking Status: Current every day smoker Tobacco Type: cigarettes ; Cigarettes Per Day: 1/2 ppd ; Second Hand Exposure: Yes ( smokes/parents smoked) ; Hx Alcohol Use: Yes Alcohol type: hard liquor Hx Substance Use: No Childhood Exposure to Second-Hand Smoke: Yes caffeine: Yes Seatbelt Use: never Results & Data Vital Signs (Past 12 Hours) Vital Signs Temp Pulse Resp BP Pulse Ox 12/23/19 07:06 37.2 C 58 L 16 119/79 97 12/22/19 23:08 37.1 C 65 14 113/71 97 Laboratory Results 12/23/19 12/23/19 12/22/19 Range/Units 04:38 04:38 16:00 WBC 9.89 (4.8-10.8) K/uL RBC 4.20 (4.2-5.4) M/uL Hgb 11.7 L (12.0-16.0) g/dL Hct 36.3 L (37-47) % MCV 86.4 (80-100) fL MCH 27.9 (25-34) pg MCHC 32.2 (32-36) g/dL RDW Std Deviation 40.7 (36.4-46.3) fL RDW Coeff of Lyla 12.8 (11.5-14.5) % Plt Count 305 (130-400) K/uL MPV 10.1 (7.4-10.4) fL Immature Gran % (Auto) 0.3 % Neut % (Auto) 86.6 % Lymph % (Auto) 11.5 % [place] % (Auto) 1.6 % Eos % (Auto) 0.0 % Baso % (Auto) 0.0 % Immature Gran # (Auto) 0.03 H (0.00-0.02) K/uL Neut # (Auto) 8.56 H (1.4-6.5) K/uL Lymph # (Auto) 1.14 L (1.2-3.4) K/uL [place] # (Auto) 0.16 (0.11-0.59) K/uL Eos # (Auto) 0.00 (0-0.5) K/uL Baso # (Auto) 0.00 (0-0.2) K/uL Sodium 140 (136-145) mmol/L Potassium 4.0 (3.5-5.1) mmol/L Chloride 112 H (98-107) mmol/L Carbon Dioxide 25 (21-32) mmol/L Anion Gap 3.0 (3-11) BUN 9 (7-18) mg/dl Creatinine 0.51 L (0.6-1.2) mg/dl Est Cr Clr Drug Dosing 150.2 ml/min Est GFR ( Amer) 148.5 Est GFR (Non-Af Amer) 128.1 BUN/Creatinine Ratio 17.1 (10-20) Glucose 119 H (70-99) mg/dl Calcium 8.1 L D (8.5-10.1) mg/dl Magnesium 1.8 (1.8-2.4) mg/dl Total Bilirubin (0.2-1) mg/dl AST (15-37) U/L ALT (12-78) U/L Alkaline Phosphatase (45-117) U/L C-Reactive Protein (0-0.29) mg/dl Total Protein (6.4-8.2) gm/dl Albumin (3.4-5.0) gm/dl Globulin (2.5-4.0) gm/dl Albumin/Globulin Ratio (0.9-2) Lipase (73-393) U/L Urine Color Dark Yellow Urine Appearance Clear (Clear) Urine pH 5.0 (4.5-7.5) Ur Specific [place] 1.027 (1.000-1.030) Urine Protein 1+ H (Negative) Urine Glucose (UA) Negative (Negative) Urine Ketones 1+ H (Negative) Urine Blood Negative (Negative) Urine Nitrite Negative (Negative) Urine Bilirubin Negative (Negative) Urine Urobilinogen Negative (Negative) Ur Leukocyte Esterase Negative (Negative) Urine WBC (Auto) 1-5 (0-5) /hpf Urine RBC (Auto) 5-10 H (0-4) /hpf U Hyaline Cast (Auto) 1-5 (0-5) /lpf U Epithel Cells (Auto) >30 H (0-5) /lpf Urine Bacteria (Auto) Negative (Negative) POC Ur Test (NEG) 12/22/19 12/22/19 12/22/19 Range/Units 16:00 13:49 13:49 WBC (4.8-10.8) K/uL RBC (4.2-5.4) M/uL Hgb (12.0-16.0) g/dL Hct (37-47) % MCV (80-100) fL MCH (25-34) pg MCHC (32-36) g/dL RDW Std Deviation (36.4-46.3) fL RDW Coeff of Lyla (11.5-14.5) % Plt Count (130-400) K/uL MPV (7.4-10.4) fL Immature Gran % (Auto) % Neut % (Auto) % Lymph % (Auto) % [place] % (Auto) % Eos % (Auto) % Baso % (Auto) % Immature Gran # (Auto) (0.00-0.02) K/uL Neut # (Auto) (1.4-6.5) K/uL Lymph # (Auto) (1.2-3.4) K/uL [place] # (Auto) (0.11-0.59) K/uL Eos # (Auto) (0-0.5) K/uL Baso # (Auto) (0-0.2) K/uL Sodium 139 (136-145) mmol/L Potassium 3.6 (3.5-5.1) mmol/L Chloride 106 (98-107) mmol/L Carbon Dioxide 27 (21-32) mmol/L Anion Gap 6.0 (3-11) BUN 8 (7-18) mg/dl Creatinine 0.73 (0.6-1.2) mg/dl Est Cr Clr Drug Dosing 104.9 ml/min Est GFR ( Amer) 127.2 Est GFR (Non-Af Amer) 109.7 BUN/Creatinine Ratio 11.3 (10-20) Glucose 115 H (70-99) mg/dl Calcium 10.2 H (8.5-10.1) mg/dl Magnesium 2.0 (1.8-2.4) mg/dl Total Bilirubin 0.5 (0.2-1) mg/dl AST 15 (15-37) U/L ALT 21 (12-78) U/L Alkaline Phosphatase 67 (45-117) U/L C-Reactive Protein 2.08 H (0-0.29) mg/dl Total Protein 8.7 H (6.4-8.2) gm/dl Albumin 4.2 (3.4-5.0) gm/dl Globulin 4.5 H (2.5-4.0) gm/dl Albumin/Globulin Ratio 0.9 (0.9-2) Lipase 102 (73-393) U/L Urine Color Urine Appearance (Clear) Urine pH (4.5-7.5) Ur Specific [place] (1.000-1.030) Urine Protein (Negative) Urine Glucose (UA) (Negative) Urine Ketones (Negative) Urine Blood (Negative) Urine Nitrite (Negative) Urine Bilirubin (Negative) Urine Urobilinogen (Negative) Ur Leukocyte Esterase (Negative) Urine WBC (Auto) (0-5) /hpf Urine RBC (Auto) (0-4) /hpf U Hyaline Cast (Auto) (0-5) /lpf U Epithel Cells (Auto) (0-5) /lpf Urine Bacteria (Auto) (Negative) POC Ur Test NEG (NEG) 12/22/19 Range/Units 13:49 WBC 13.28 H (4.8-10.8) K/uL RBC 4.97 (4.2-5.4) M/uL Hgb 14.2 (12.0-16.0) g/dL Hct 42.9 (37-47) % MCV 86.3 (80-100) fL MCH 28.6 (25-34) pg MCHC 33.1 (32-36) g/dL RDW Std Deviation 40.7 (36.4-46.3) fL RDW Coeff of Lyla 12.8 (11.5-14.5) % Plt Count 323 (130-400) K/uL MPV 9.9 (7.4-10.4) fL Immature Gran % (Auto) 0.2 % Neut % (Auto) 74.1 % Lymph % (Auto) 18.1 % [place] % (Auto) 6.4 % Eos % (Auto) 1.0 % Baso % (Auto) 0.2 % Immature Gran # (Auto) 0.02 (0.00-0.02) K/uL Neut # (Auto) 9.85 H (1.4-6.5) K/uL Lymph # (Auto) 2.40 (1.2-3.4) K/uL [place] # (Auto) 0.85 H (0.11-0.59) K/uL Eos # (Auto) 0.13 (0-0.5) K/uL Baso # (Auto) 0.03 (0-0.2) K/uL Sodium (136-145) mmol/L Potassium (3.5-5.1) mmol/L Chloride (98-107) mmol/L Carbon Dioxide (21-32) mmol/L Anion Gap (3-11) BUN (7-18) mg/dl Creatinine (0.6-1.2) mg/dl Est Cr Clr Drug Dosing ml/min Est GFR ( Amer) Est GFR (Non-Af Amer) BUN/Creatinine Ratio (10-20) Glucose (70-99) mg/dl Calcium (8.5-10.1) mg/dl Magnesium (1.8-2.4) mg/dl Total Bilirubin (0.2-1) mg/dl AST (15-37) U/L ALT (12-78) U/L Alkaline Phosphatase (45-117) U/L C-Reactive Protein (0-0.29) mg/dl Total Protein (6.4-8.2) gm/dl Albumin (3.4-5.0) gm/dl Globulin (2.5-4.0) gm/dl Albumin/Globulin Ratio (0.9-2) Lipase (73-393) U/L Urine Color Urine Appearance (Clear) Urine pH (4.5-7.5) Ur Specific [place] (1.000-1.030) Urine Protein (Negative) Urine Glucose (UA) (Negative) Urine Ketones (Negative) Urine Blood (Negative) Urine Nitrite (Negative) Urine Bilirubin (Negative) Urine Urobilinogen (Negative) Ur Leukocyte Esterase (Negative) Urine WBC (Auto) (0-5) /hpf Urine RBC (Auto) (0-4) /hpf U Hyaline Cast (Auto) (0-5) /lpf U Epithel Cells (Auto) (0-5) /lpf Urine Bacteria (Auto) (Negative) POC Ur Test (NEG) Diagnostic Findings XR abdomen 2V w PA chest HISTORY: 29 years-old Female Epigastric abd pain acute epigastric abdominal pain COMPARISON: CT abdomen and pelvis 03/09/2015 TECHNIQUE: PA view of the chest with erect and supine views of the abdomen FINDINGS: Cardiomediastinal and hilar silhouettes are within normal limits. Eventration of the right hemidiaphragm. No pneumothorax, pleural effusion, airspace consolidation or overt pulmonary edema. Bones of the chest appear grossly intact. Cholecystectomy. Multiple dilated loops of small bowel with air-fluid levels are noted measuring up to 5.0 cm. The large bowel predominantly appears to be decompressed. No pneumatosis or pneumoperitoneum. No definite urolith. No acute fracture. IMPRESSION: 1. Small bowel obstruction without pneumatosis or pneumoperitoneum identified. 2. No acute processes of the chest. 3. Cholecystectomy. (1) Crohn's ileitis Digestive disease complication type: with fistula Qualified Code(s): K50.013 - Crohn's disease of small intestine with fistula
--- NOTE | 2019-12-23 13:10 | Hospitalist Progress Note ---
Date of Service December 23, 2019 Assessment & Plan (1) Small bowel obstruction: KUB on 12/21 showed small bowel obstruction. - Continue NG tube with suction - GI and general surgery following -> Continue for now. Pain improving and nausea resolved. - Gentle IV fluids and H2 jaison (2) Crohn's ileitis: Has trialed many different maintenance medications. - Continue methylprednisolone per GI (3) DVT prophylaxis: Lovenox 40mg SQ daily Admission and Anticipated Discharge Date Admission Date: December 22, 2019 Subjective Not in good spirits. Says she's annoyed by "everything," but does not specify other than not liking the NG tube. Reports no fevers/chills, chest pain, shortness of breath, abdominal pain, nausea, or vomiting. Physical Exam Constitutional: WD/WN, vitals as above Eyes: EOM intact bilaterally; no conjunctival abnormality ENMT: external ear and nose normal, oropharynx normal Nose: + external nose abnormality (NG tube with bilious drainage.) Neck: trachea midline, no thyromegaly normal visual inspection Respiratory: normal respiratory effort, lungs clear to auscultation no respiratory distress Cardiovascular: RRR, no murmur, no edema Gastrointestinal (Abdomen): Inspection/Auscultation: abdomen normal to inspection; abdomen not distended Musculoskeletal: no cyanosis or clubbing, extremities motor strength 5/5 Skin: no rashes, warm and dry Neurologic: moves all extremities and awake Psychiatric: Orientation: alert, oriented to person and cooperative Results & Data ([facility]) Vital Signs (Past 12 Hours) Vital Signs Temp Pulse Resp BP Pulse Ox 12/23/19 07:06 37.2 C 58 L 16 119/79 97 PG Care Time/CCT Total # of Minutes Spent Total Time Spent with Patient: Total time spent is greater than 50% in coordination of care (as documented) at patient's floor/unit and/or counseling patient: Coding Level of Care Code 76475 Subseq Hosp Care Lvl 2 Diagnoses Small bowel obstruction K56.609 Crohn's ileitis K50.013 Digestive disease complication type: with fistula DVT prophylaxis Z29.9 (1) Crohn's ileitis Digestive disease complication type: with fistula Qualified Code(s): K50.013 - Crohn's disease of small intestine with fistula
[2019-12-23] MEDS: ENOXAPARIN INJ 40 MG/0.4 ML SYR SQ SCH (18:36)
[2019-12-24] MEDS: SODIUM CHLORIDE 0.9% 1000ML 1,000 ML IV SCH ×2 (00:20→10:20)
[2019-12-24] MEDS: FAMOTIDINE 20 MG in SYRINGE 3 ML IV SCH (05:35)
[2019-12-24] MEDS: methylPREDNISolone 80 MG in SYRINGE 0 ML IV SCH (05:35)
[2019-12-24 05:45] LABS: Hematocrit (blood only) 34.5 % (37-47); Hemoglobin 11.1 g/dL (12.0-16.0); Mean Corpuscular Hemoglobin 27.8 pg (25-34); Mean Corpuscular Hgb Conc 32.2 g/dL (32-36); Mean Corpuscular Volume 86.3 fL (80-100); Mean Platelet Volume 10.2 fL (7.4-10.4); Platelet Count 285 K/uL (130-400); RDW Coefficient of Variation 12.6 % (11.5-14.5); RDW Standard Deviation 39.8 fL (36.4-46.3); White Blood Count 12.53 K/uL (4.8-10.8)
[2019-12-24 06:16] LABS: Alanine Aminotransferase 17 U/L (12-78); Albumin Level 2.7 gm/dl (3.4-5.0); Aspartate Aminotransferase 8 U/L (15-37); BUN Creatinine Ratio 24.8 (10-20); Blood Urea Nitrogen 12 mg/dl (7-18); Calcium 8.5 mg/dl (8.5-10.1); Carbon Dioxide 26 mmol/L (21-32); Chloride 110 mmol/L (98-107); Creatinine Clr Calc Pharmacy 156.3 ml/min; Est GFR (African American) > 150.0; Est GFR (Non-African American) 129.8; Glucose 112 mg/dl (70-99); Potassium 3.8 mmol/L (3.5-5.1); Sodium 140 mmol/L (136-145)
[2019-12-24 06:25] LABS: Albumin Globulin Ratio 0.9 (0.9-2); Alkaline Phosphatase 44 U/L (45-117); Bilirubin,Total 0.5 mg/dl (0.2-1); Globulin 3.1 gm/dl (2.5-4.0); Phosphorus 2.8 mg/dl (2.5-4.9); Total Protein 5.9 gm/dl (6.4-8.2)
[2019-12-24] MEDS: LORazepam 0.5 MG/1 ML VIAL IV PRN (08:32)
--- NOTE | 2019-12-24 09:08 | Surgery Progress Note ---
Date of Service December 24, 2019 Assessment & Plan (1) Small bowel obstruction: Clinically resolved. Can resume diet. No indication for surgical intervention at this time We will sign off. Please let me know if there is anything else we can do to help with this patient Subjective Feels well this morning Denies abdominal pain Passed bowels and flatus Denies nausea and vomiting Physical Exam Gastrointestinal (Abdomen): Inspection/Auscultation: abdomen normal to inspection; abdomen not distended Percussion/Palpation: abdomen soft; abdomen nontender Results & Data Vital Signs (Past 12 Hours) Vital Signs Temp Pulse Resp BP Pulse Ox 12/24/19 07:47 36.8 C 59 L 16 128/76 98 12/23/19 23:07 36.9 C 64 14 122/72 97
--- NOTE | 2019-12-24 09:55 | Gastroenterology Progress Note ---
Date of Service December 24, 2019 Assessment & Plan (1) Crohn's ileitis: (2) Small bowel obstruction: (3) Intractable nausea and vomitin. Clear liquid diet with advancement to a soft, low residue diet as tolerated. 2. Entyvio infusion at 300 mg IV now. Then, she will continue induction schedule by receiving an infusion at week 6 and then every 8 weeks thereafter. 3. Decrease IV Solu-Medrol 40 mg IV BID. Upon discharge, recommend a long taper of 40 mg PO daily decreasing by 5 mg weekly until finished. 4. Counseled again on risks of ongoing tobacco use and risks of worsened Crohn's disease. 5. Continue supportive care. Discussed care of plan with Dr. Arshad. Admission and Anticipated Discharge Date Admission Date: December 22, 2019 Supervising Physician Co-Signing Physician Notes I personally evaluated the patient and agree with the findings as documented by REECE Davis Exam: abd: soft, nt, nd Subjective Patient reports feeling well today. NG has been removed. She is on ice chips and is ready for diet advancement. Denies any f/c, abdominal pain, or n/v. States she has been passing flatus and 2 liquid stools this morning. Remains on Solu- Medrol 80 mg IV BID. Due for Entvyio 2 days ago. Review of Systems Review of Systems: All systems reviewed & are unremarkable except as noted in HPI & below Physical Exam Constitutional: WD/WN, vitals as above Respiratory: normal respiratory effort, lungs clear to auscultation Cardiovascular: RRR, no murmur, no edema Gastrointestinal (Abdomen): normal bowel sounds, soft, nontender, no hepatosplenomegaly Psychiatric: A+Ox3, euthymic affect Results & Data Results & Data ([facility]) Vital Signs (Past 12 Hours) Vital Signs Temp Pulse Resp BP Pulse Ox 12/24/19 07:47 36.8 C 59 L 16 128/76 98 12/23/19 23:07 36.9 C 64 14 122/72 97 Laboratory Results Abnormal lab results 12/24/19 12/24/19 Range/Units 05:06 05:06 WBC 12.53 H (4.8-10.8) K/uL RBC 4.00 L (4.2-5.4) M/uL Hgb 11.1 L (12.0-16.0) g/dL Hct 34.5 L (37-47) % Chloride 110 H (98-107) mmol/L Creatinine 0.49 L (0.6-1.2) mg/dl BUN/Creatinine Ratio 24.8 H (10-20) Glucose 112 H (70-99) mg/dl AST 8 L (15-37) U/L Alkaline Phosphatase 44 L (45-117) U/L Total Protein 5.9 L D (6.4-8.2) gm/dl Albumin 2.7 L (3.4-5.0) gm/dl PG Care Time/CCT Total # of Minutes Spent Total Time Spent with Patient: Total time spent is greater than 50% in coordination of care (as documented) at patient's floor/unit and/or counseling patient: Coding Level of Care Code 28874 Subseq Hosp Care Lvl 3 Diagnoses Crohn's ileitis K50.013 Digestive disease complication type: with fistula Small bowel obstruction K56.609 Intractable nausea and vomiting R11.2 (1) Crohn's ileitis Digestive disease complication type: with fistula Qualified Code(s): K50.013 - Crohn's disease of small intestine with fistula
[2019-12-24] MEDS ORDERED: VEDOLIZUMAB 300 MG in SODIUM CHLORIDE 0.9% 250 ML IV ONE (15:30)
--- NOTE | 2019-12-24 17:12 | Discharge Summary ---
Date of Service December 24, 2019 Admission HPI Per Admitting Provider This is a 29-year-old female with past medical history of Crohn's disease that presents today complaining of significant abdominal pain. Patient is limited strength patient seems to be in some distress during my conversation with her. Patient has been receiving Entyvio from her GI physician. She was due for dose today. She was doing well yesterday but this morning woke up with significant abdominal pain. This is mostly periumbilical and midline. This was accompanied by intractable vomiting. Although I did not see vomitus, she had multiple episodes in the emergency room described as bilious. Her last bowel movement was was approximately 930 this morning it was a small volume. She denies any prodromal symptoms and was feeling fine yesterday. She has not had any POs. she called her GI physician and was told to present to the emergency room for further evaluation. At time my evaluation, the patient was alert but seemed very nauseous and did not provide much more history. NG tube was being prepared for insertion secondary to the patient's abnormal abdominal x-ray. Principal Diagnosis Small bowel obstruction and Crohn's flare Discharge Exam Constitutional WD/WN, vitals as above Eyes EOM intact bilaterally; no conjunctival abnormality ENMT external ear and nose normal, oropharynx normal Nose: + external nose abnormality (NG tube with bilious drainage.) Neck trachea midline, no thyromegaly normal visual inspection Respiratory normal respiratory effort, lungs clear to auscultation no respiratory distress Cardiovascular RRR, no murmur, no edema Gastrointestinal (Abdomen) Inspection/Auscultation: abdomen normal to inspection; abdomen not distended Musculoskeletal no cyanosis or clubbing, extremities motor strength 5/5 Skin no rashes, warm and dry Neurologic moves all extremities and awake Psychiatric Orientation: alert, oriented to person and cooperative Discharge Data Allergies Allergy/AdvReac Type Severity Reaction Status Date / Time promethazine Allergy Intermediate SHORTNESS Verified 12/22/19 13:53 OF BREATH bee venom protein (honey bee) Allergy Mild Rash Verified 12/22/19 13:53 Consultations 12/22/19 16:18 ED Decision to Admit Stat 12/22/19 18:00 Consult Gastroenterology Routine Consult General Surgery Routine Hospital Course (1) Small bowel obstruction: KUB on 12/21 showed small bowel obstruction. - Was NG tube with suction, but diet advanced on 03/20 without issue. NG removed. Tolerated diet by discharge and not having any pain. (2) Crohn's ileitis: Has trialed many different maintenance medications. - Received Entyvio infusion prior to discharge. - Discharged on long steroid taper of 40 mg x 1 week, then 35 mg x 1 week, etc. per GI. Discussed with patient, and she has done this before and understood the instructions. - Follow up with GI as an outpatient. (3) DVT prophylaxis: Lovenox 40mg SQ daily Total Time Total Time Spent Total Time Spent (In Minutes): 45 Discharge Plan Discharge Items Patient Disposition: Home - Self-Care Reason For Visit: CROHN'S DZ, SBO Discharge Diagnosis: Small bowel obstruction and Crohn's disease Condition on Discharge: Good Activity: Resume your previous activity Non-emergency contact: Primary Care Provider and Operations Specialist Call non-emergency contact if: your symptoms worsen and your temperature is above 101 Follow-up/Referrals: Evans Shane, [Physician] - Kirk Phelps [Primary Care Provider] - Diet: Regular Addtl Attending Provider Instructions: You were admitted to the hospital with a small bowel obstruction that is presumed due to the Crohn's disease. Please follow up with Dr. Shane's office for your Entyvio infusion as soon as able. We are giving you a steroid taper to help keep your Crohn's disease calm. Take prednisone 40 mg (2 20 mg tablets) for 1 week then, prednisone 35 mg (20 mg, 10 mg, and 5 mg tablets) for 1 week then, prednisone 30 mg (20 mg & 10 mg tablets) for 1 week then, prednisone 25 mg (20 mg & 5 mg tablets) for 1 week then, prednisone 20 mg (20 mg tablets) for 1 week then, prednisone 15 mg (10 mg & 5 mg tablets) for 1 week then, prednisone 10 mg (10 mg tablets) for 1 week then, prednisone 5 mg (5 mg tablets) for 1 week then stop. Please follow up with Dr. Shane as soon as able. Pending Studies at Discharge: No Stand-Alone Forms: My [employer], Smoking Cessation Medications and DC Order Prescriptions: New prednisone 20 mg tablet 40 mg PO DAILY Qty: 42 RF: 0 prednisone 10 mg tablet 10 mg PO DAILY Qty: 28 RF: 0 prednisone 5 mg tablet 5 mg PO DAILY Qty: 28 RF: 0 Continued famotidine [Pepcid AC] 20 mg tablet 20 mg PO BID PRN (Reason: Acid Reflux) RF: 0 acetaminophen [Tylenol Extra Strength] 500 mg tablet 1,000 mg PO Q8H RF: 0 Entyvio 300 mg recon soln See Rx Instructions IV .COMPLEX RF: 0 albuterol sulfate 90 mcg/actuation Hfa Aerosol Inhaler 2 puff INHALATION Q6H PRN (Reason: Shortness Of Breath) RF: 0 Discharge Orders: Discharge Order (Routine); Ordered 12/24/19 Ordered By: Bryan Arshad Admission Data Admit Date/Time: 12/22/19 16:59 Attending Provider: Bryan Arshad Admit Provider: Davidson Bedoya Primary Care Provider: Kirk Phelps Other Providers: Evans Shane ; Miquel Cage ; Bryan Arshad Other Interventions: Discharge Summary Assessment (RN) Last Done: 12/24/19 15:48 DC Date/Time DO NOT enter until pt leaves facility: 12/24/19 16:22 Coding Level of Care Code D/C Day Management >30 mins Diagnoses Small bowel obstruction K56.609 Crohn's ileitis K50.013 Digestive disease complication type: with fistula DVT prophylaxis Z29.9
[2019-12-24] MEDS ORDERED: methylPREDNISolone 40 MG in SYRINGE 0 ML IV SCH (18:00)
== END 2019-12-24 16:22 | disposition home or self-care (01) | DRG 387 ==
LOC: ED 13:23 → SUATTDRO 16:59 → 3W 16:59